=== PATIENT | female | born 1990 | race African-American/Black ===

== ENCOUNTER 2017-03-29 10:38 | Emergency (ER) | payer SELFPAY ==
[~2017-03-29] VITALS: Ht 167.6 cm; Wt 77.4 kg
[~2017-03-29 10:38] MED LIST: AMOXICILLIN500 MG OR; AMOXICILLIN500 MG PO; BACTRIM DS1 TAB PO; CIPROFLOXACN500 MG PO; FIORICET PO; FLEXERIL PO; MEDDOSEPAK PO; METRONIDAZOL500 MG PO; MOTRIN800 MG PO; NO HOME MEDS; TORADOL PO; ULTRAM50 M1 PO; VENTOLIN HFA; VENTOLIN HFA IN; ZITHROMAX250 MG PO; ZOFRAN ODT4 MG PO
[2017-03-29] MEDS ORDERED: PENICILLN VK500 MG PO (11:17)
[2017-03-29 11:20] VITALS: BP 100/60
== END 2017-03-29 11:27 | disposition home or self-care (01) | DRG 153 ==
LOC: ED 10:38
DX: J02.9 Acute pharyngitis, unspecified (principal)

== ENCOUNTER 2017-04-04 00:27 | Emergency (ER) | payer SELFPAY ==
[~2017-04-04 00:27] MED LIST changes: +PENICILLN VK500 MG PO
== END 2017-04-04 01:00 | disposition left against medical advice (07) | DRG 951 ==
LOC: ED 00:27 → LWOBS 01:00
DX: Z91.19 Patient's noncompliance with other medical treatment and regimen (principal)

== ENCOUNTER 2017-04-19 10:55 | Emergency (ER) | payer SELFPAY ==
[~2017-04-19] VITALS: Ht 167.6 cm; Wt 76.2 kg
[2017-04-19] MEDS ORDERED: CLINDAMYCIN300 M1 PO (11:49)
[2017-04-19 12:00] VITALS: BP 109/65
== END 2017-04-19 12:00 | disposition home or self-care (01) | DRG 153 ==
LOC: ED 10:55
DX: J02.9 Acute pharyngitis, unspecified (principal)

== ENCOUNTER 2017-05-12 12:52 | Emergency (ER) | payer OTHER ==
[~2017-05-12] VITALS: Ht 167.6 cm; Wt 76.0 kg
[~2017-05-12 12:52] MED LIST changes: +CLINDAMYCIN300 M1 PO
[2017-05-12 14:49] VITALS: BP 120/80
[2017-05-12] MEDS ORDERED: MOTRIN400 MG PO (14:49)
== END 2017-05-12 14:55 | disposition home or self-care (01) | DRG 556 ==
LOC: ED 12:52
DX: M62.838 Other muscle spasm (principal); M62.830 Muscle spasm of back; V49.40XA Driver injured in collision with unspecified motor vehicles in traffic accident, initial encounter

== ENCOUNTER 2018-06-20 18:07 | Emergency (ER) | payer SELFPAY ==
[~2018-06-20] VITALS: Ht 167.6 cm; Wt 78.0 kg
[~2018-06-20 18:07] MED LIST changes: +MOTRIN400 MG PO
[2018-06-20] MEDS ORDERED: IMODIUM2 MG PO (18:26)
[2018-06-20] MEDS ORDERED: CIPROFLOXACN500 MG PO (18:26)
[2018-06-20] MEDS ORDERED: BENTYL10 MG PO (18:26)
[2018-06-20 18:32] VITALS: BP 120/78
== END 2018-06-20 18:39 | disposition home or self-care (01) | DRG 392 ==
LOC: ED 18:07
DX: R19.7 Diarrhea, unspecified (principal)

== ENCOUNTER 2018-11-16 11:47 | Emergency (ER) | payer OTHER ==
[~2018-11-16] VITALS: Ht 167.6 cm; Wt 87.0 kg
[~2018-11-16 11:47] MED LIST changes: +BENTYL10 MG PO; +IMODIUM2 MG PO
[2018-11-16] MEDS ORDERED: VISTARIL 50MG C50 M1 PO (14:16)
[2018-11-16 14:40] VITALS: BP 119/82
== END 2018-11-16 14:40 | disposition home or self-care (01) | DRG 563 ==
LOC: ED 11:47
DX: S46.912A Strain of unspecified muscle, fascia and tendon at shoulder and upper arm level, left arm, initial encounter (principal); S40.012A Contusion of left shoulder, initial encounter; S40.021A Contusion of right upper arm, initial encounter; F41.9 Anxiety disorder, unspecified; M25.531 Pain in right wrist; Y04.8XXA Assault by other bodily force, initial encounter; Y93.89 Activity, other specified; Y92.89 Other specified places as the place of occurrence of the external cause; Y99.0 Civilian activity done for income or pay

== ENCOUNTER 2019-05-09 15:26 | Emergency (ER) | payer SELFPAY ==
[~2019-05-09 15:26] MED LIST changes: +VISTARIL 50MG C50 M1 PO
[2019-05-09] MEDS ORDERED: PENICILLN VK500 MG PO (15:54)
[2019-05-09 16:21] VITALS: BP 141/90
== END 2019-05-09 16:20 | disposition home or self-care (01) | DRG 159 ==
LOC: ED 15:26
DX: K02.9 Dental caries, unspecified (principal); F17.200 Nicotine dependence, unspecified, uncomplicated

== ENCOUNTER 2023-02-05 04:02 | Emergency (ER) | payer SELFPAY ==
[~2023-02-05] VITALS: Ht 167.6 cm; Wt 95.3 kg
[2023-02-05 05:25] LABS: BASO% 0.1 % (0-3); EOS% 0.1 % (0-8); HEMATOCRIT 38.6 % (37.0-47.0); HEMOGLOBIN 12.3 g/dl (12.0-16.0); IMMATURE GRANULOCYTES 0.3 % (0.0-5.0); MEAN CELL VOLUME 90.4 fL CALC (80.0-100.0); MEAN CORPUSCULAR HGB 28.8 pG CALC (26.0-32.0); MEAN CORPUSCULAR HGB CONC 31.9 g/dL CAL (32.0-36.0); MONO% 6.3 % (2-13); NEUT# 5.08 thou/uL (2.00-7.15); NEUT% 67.2 % (42-76); RED BLOOD COUNT 4.27 mill/uL (4.20-5.60)
[2023-02-05 05:34] LABS: ALBUMIN 4.6 g/dL (3.2-5.0); ALKALINE PHOSPHATASE 59 u/l (38-126); AMYLASE 66 u/l (30-110); ANION GAP 14 (6-22 (CALC)); BILIRUBIN, TOTAL 0.3 mg/dL (0.02-1.3); BUN 7 mg/dL (7-17); BUN/CREATININE RATIO 12 (12-20 (CALC)); CARBON DIOXIDE 26 mmol/l (22-30); CHLORIDE 101 mmol/l (95-108); CREATININE 0.6 mg/dL (0.5-1.0); GFR FOR AFR.AMER. > 60 ML/MIN (>=60 (CALC)); GFR OTHER RACES > 60 ML/MIN (>=60 (CALC)); LIPASE 72 u/l (23-300); POTASSIUM 4.2 mmol/l (3.5-5.1); SGOT/AST 40 u/l (14-36); SODIUM 137 mmol/l (137-146); TOTAL PROTEIN 7.5 g/dL (6.3-8.2)
[2023-02-05 05:34] LABS: URINE BILIRUBIN - DIPSTICK Negative (NEGATIVE); URINE BLOOD DIPSTICK Negative (NEGATIVE); URINE COLOR Yellow; URINE GLUCOSE - DIPSTICK Negative (NEGATIVE); URINE KETONE Negative (NEGATIVE); URINE LEUK ESTERASE Negative (NEGATIVE); URINE NITRITE - DIPSTICK Negative (Negative); URINE PROTEIN - DIPSTICK Negative (NEG-TRACE); URINE UROBILINOGEN - DIPSTICK 0.2 E.U./dL (0.2)
[2023-02-05 08:04] VITALS: BP 135/94
== END 2023-02-05 08:17 | disposition home or self-care (01) | DRG 392 ==
LOC: ED 04:02
PROVIDERS: Family Medicine
DX: R19.7 Diarrhea, unspecified (principal); R11.0 Nausea; J02.9 Acute pharyngitis, unspecified